=== PATIENT | female | born 1980 | race Asian ===

== ENCOUNTER 2016-08-12 14:07 | Day surgery (SDC) | payer OTHER ==
[2016-08-12 14:39] VITALS: BMI 25.7
[2016-08-12 14:42] LABS: BASOPHIL 0.3 % (0-2.0); EOSINOPHIL 0.6 % (0-4.5); MCH 30.7 pg (25.7-33.7); MCHC 34.1 g/dl (32.0-36.0); MEAN CELL VOLUME 89.9 fl (80-96); MEAN PLT VOLUME 8.7 fl (7.5-11.1); PLATELET COUNT 271 K/MM3 (134-434); RDW 14.3 % (11.6-15.6); WHITE BLOOD COUNT 10.5 K/mm3 (4.0-10.0)
[2016-08-12] MEDS ORDERED: MIDAZOLAM HCL 2 MG/2 ML SINGLE DOSE VIAL ONE (14:44)
[2016-08-12] MEDS ORDERED: PROPOFOL 20 ML ONE (14:44)
[2016-08-12] MEDS ORDERED: ePHEDrine SULFATE 50 MG/1 ML AMPULE ONE (15:14)
[2016-08-12] MEDS ORDERED: ceFAZolin SODIUM 1 GM VIAL ONE (15:17)
[2016-08-12] MEDS ORDERED: ceFAZolin SODIUM 1 GM VIAL IVPB ONE (15:17)
[2016-08-12] MEDS ORDERED: DEXAMETHASONE SOD PHOSPHATE 4 MG/1 ML VIAL ONE (15:19)
--- NOTE | 2016-08-12 15:37 | HP ---
Admitting History and Physical - Admission Chief Complaint: Vaginal spotting History of Present Illness: 36 yo LMP May 2016, seen in office today c/o vaginal spotting. A sonogram done in office showed an intrauterine without heart rate. A second sonogram done in hospital confirmed the finding. Decision made for suction D&C. Extensive discussion and counseling given to patient and . History Source: Patient Limitations to Obtaining History: No Limitations - Past Medical History ...LMP: 06/05/16 ...: Yes ...: 5 ...Para: 4 - Past Surgical History Past Surgical History: Yes: None - Smoking History Smoking history: Never smoked - Alcohol/Substance Use Hx Alcohol Use: No - Social History History of Recent Travel: Yes ([facility]) Home Medications - Allergies Allergies/Adverse Reactions: Allergies Allergy/AdvReac Type Severity Reaction Status Date / Time No Known Allergies Allergy Verified 08/12/16 14:30 - Home Medications Home Medications: Ambulatory Orders NK [No Known Home Medication] 08/12/16 Family Disease History - Family Disease History Family History: Unremarkable Review of Systems - Review of Systems Constitutional: reports: No Symptoms Eyes: reports: No Symptoms HENT: reports: No Symptoms Neck: reports: No Symptoms Cardiovascular: reports: No Symptoms Respiratory: reports: No Symptoms Gastrointestinal: reports: No Symptoms Genitourinary: reports: Vaginal Bleeding Breasts: reports: No Symptoms Reported Musculoskeletal: reports: No Symptoms Integumentary: reports: No Symptoms Neurological: reports: No Symptoms Endocrine: reports: No Symptoms Psychiatric: reports: No Symptoms Pain Intensity: 3 Physical Examination Vital Signs: Vital Signs Temperature 98.6 F 08/12/16 14:33 Pulse Rate 84 08/12/16 14:33 Respiratory Rate 12 08/12/16 14:33 Blood Pressure 99/64 08/12/16 14:33 O2 Sat by Pulse Oximetry (%) 100 08/12/16 14:33 Constitutional: Yes: Well Nourished Eyes: Yes: Conjunctiva Clear HENT: Yes: Atraumatic Neck: Yes: Supple, Trachea Midline Cardiovascular: Yes: Regular Rate and Rhythm Respiratory: Yes: Regular Gastrointestinal: Yes: Normal Bowel Sounds Neurological: Yes: Alert, Oriented ...Motor Strength: WNL Psychiatric: Yes: Alert, Oriented Labs: CBC, BMP 08/12/16 14:17 Problem List - Problems (1) Missed Code(s): O02.1 - MISSED Assessment/Plan Missed Pre op for suction D&C Consent signed Anesthesia to see patient
[2016-08-12] MEDS ORDERED: PROMETHAZINE HCL 25 MG/1 ML VIAL IVPUSH PRN (15:43)
[2016-08-12] MEDS ORDERED: oxyCODONE HCL 5 MG TABLET PO PRN (15:43)
[2016-08-12] MEDS ORDERED: KETOROLAC TROMETHAMINE 30 MG/1 ML VIAL IVPUSH ONE (15:43)
[2016-08-12] MEDS ORDERED: ONDANSETRON 4 MG/2 ML VIAL IVPUSH PRN (15:43)
[2016-08-12] MEDS ORDERED: LACTATED RINGERS SOLUTION 1,000 ML IV SCH (15:45)
[2016-08-12] MEDS ORDERED: KETOROLAC TROMETHAMINE 30 MG/1 ML VIAL ONE (16:21)
--- NOTE | 2016-08-12 16:42 | OP ---
DATE OF OPERATION: 08/12/2016 PREOPERATIVE DIAGNOSIS: Missed . POSTOPERATIVE DIAGNOSIS: Missed . PROCEDURE: Suction dilation and curettage. SURGEON: Ragini Pena MD ANESTHESIA: General. COMPLICATION: None. ESTIMATED BLOOD LOSS: 20 mL. PROCEDURE: The patient was taken to the operating room, where general anesthesia was administered. The patient was then placed in lithotomy position, prepped and draped in proper sterile fashion. A weighted speculum was placed in the vagina. The anterior lip of the cervix was grasped with a single-tooth tenaculum. Then a 10 curved curette was then gently introduced into the uterine cavity. The curette was rotated to clear the uterus of all products of conception. A sharp curettage was then performed. The curette was reintroduced to clear the uterus of all remaining products of conception, and the instruments were removed. The patient was taken out of lithotomy position. She was taken to PACU in stable condition. PATHOLOGY: Products of conception. Daron [id number]
[2016-08-12 17:16] VITALS: PULSE 76
[2016-08-12 17:18] VITALS: TEMP 98.2
[2016-08-12 17:33] VITALS: BP 98/53
--- NOTE | 2016-08-16 13:36 | PATH ---
Surgical Pathology Report Patient Name: TONE BURCIAGA Med. Rec. #: [id number] /Age/Gender: 1980 (Age: 36) / F Account: [id number] Location: [facility] SURGICAL Taken: 08/12/2016 Received: 08/13/2016 Reported: 08/16/2016 Physicians: Ragini Pena M.D. Specimen(s) Received PRODUCTS OF CONCEPTION Clinical History Missed Final Diagnosis UTERINE CONTENTS, EVACUATION: CHORIONIC VILLI CONSISTENT WITH PRODUCTS OF CONCEPTION. Electronically Signed James Medina M.D. Gross Description Received in formalin labeled "products of conception," is a 9.5 x 7.5 x 1.0 cm aggregate of weldon-brown soft tissue fragments. Villous tissue is identified. No definite somatic tissue is identified. A sales representative electric service portion is submitted in one cassette. /08/13/2016 saudi08/13/2016
== END 2016-08-12 17:39 | disposition home or self-care (01) ==
LOC: JASU-SURG 14:07
PROVIDERS: ATTEND Obstetrics & Gynecology
PROC: 10D17ZZ Extraction of Products of Conception, Retained, Via Natural or Artificial Opening (ICD-10-PCS; principal; 2016-08-12 14:30)
DX: O02.1 Missed abortion (principal)
CPT/HCPCS: 36415; 85025; 86850; 86900; 86901; 88305-TC; 94760

== ENCOUNTER 2017-01-27 09:30 | Day surgery (SDC) | payer OTHER ==
[2017-01-26 11:39] VITALS: BMI 29.2
[2017-01-27] MEDS ORDERED: ceFAZolin SODIUM 1 GM VIAL IVPB ONE (12:09)
[2017-01-27] MEDS ORDERED: IBUPROFEN 400 MG TABLET (FP) PO PRN (13:10)
[2017-01-27] MEDS ORDERED: ACETAMINOPHEN 325 MG TABLET (FP) PO PRN (13:10)
--- NOTE | 2017-01-27 13:10 | HP ---
History & Physical Update - History History: No Change - Physical Physical: No Change - Assessment Assessment: No Change - Plan Plan: No Change
--- NOTE | 2017-01-27 13:12 | OP ---
Operative Note - Note: Operative Date: 01/27/17 Pre-Operative Diagnosis: Molar Operation: Suction DC Post-Operative Diagnosis: Same as Pre-op Surgeon: Evelin Enrique Estimated Blood Loss (mls): 120 Operative Report Dictated: Yes
[2017-01-27 14:32] VITALS: TEMP 98.3
[2017-01-27 16:28] VITALS: BP 100/60; PULSE 66
--- NOTE | 2017-01-31 14:40 | PATH ---
Surgical Pathology Report Patient Name: OTNE BURCIAGA [facility]. Rec. #: [id number] /Age/Gender: 1980 (Age: 36) / F Account: [id number] Location: [facility] Taken: 01/27/2017 Received: 01/27/2017 Reported: 01/31/2017 Physicians: Evelin Enrique M.D. Specimen(s) Received MOLAR Clinical History Abnormal (molar ) Final Diagnosis UTERINE CONTENTS, MOLAR , SUCTION DILATATION AND CURETTAGE: DIFFUSE VILLOUS ENLARGEMENT WITH MARKED HYDROPIC CHANGES, CISTERN FORMATION AND CIRCUMFERENTIAL TROPHOBLASTIC HYPERPLASIA CONSISTENT WITH COMPLETE HYDATIDIFORM MOLE. Comment: Immunohistochemical stains performed and interpreted at [facility], [place], [place] ([id number]) show loss of nuclear expression with P57 and high proliferative activity with ki-67. Histomorphology and immunophenotype supports the above diagnosis. Electronically Signed Zo Haque M.D. Gross Description Received in formalin labeled "molar ," is an 11.0 x 9.0 x 1.3 cm aggregate of weldon-red tissue fragments. Fluid-filled, saccular villous tissue is identified. No somatic tissue is identified. Bar Roller sections are submitted in 3 cassettes. 01/27/201701/27/2017
== END 2017-01-27 16:28 | disposition home or self-care (01) ==
LOC: JASU-SURG 09:30
PROVIDERS: ATTEND Obstetrics & Gynecology
PROC: 10D07Z6 Extraction of Products of Conception, Vacuum, Via Natural or Artificial Opening (ICD-10-PCS; principal; 2017-01-27 10:30)
DX: O02.0 Blighted ovum and nonhydatidiform mole (principal)
CPT/HCPCS: 86850; 86900; 86901; 86922; 88304-TC